=== PATIENT | female | born 2000 | race Caucasian/White ===

== ENCOUNTER 2023-11-17 10:30 | Inpatient (IN) ==
--- NOTE | 2023-11-17 13:47 | History & Physical Report ---
Date of Service November 17, 2023 Assessment & Plan (1) Gestational diabetes: (2) state, gestational carrier: (3) resulting from in vitro fertilization, antepartum: Plan Pt is a 23 yo at 37 3/7 WGA presenting to labor and delivery for labor. External FHT and external uterine monitors used; Category I tracing; moderate FHT variability. Blood type; O+, GBS negative, rubella equivocal Plan to monitor labor progress and may rupture membranes later if necessary. Proceed with labor and plan for vaginal delivery. History of Present Illness Chief Complaint: Labor check Primary Care Provider: SADE Silver Pt is a 24 y/o female currently at 37 3/7 WGA with an VALERIA of 12/05/2023 as determined by ultrasound who is here for labor. + contractions; + movement; - fluid loss; - bloody show. She states she feels overall well today, just that her contractions are quite painful. Had regular appointments with OB. Her was complicated by: Patient is Gestational Carrier IVF/ICSI * Echo- (08/02/23 @ [facility] [place] - wnl *Growth US Q4wks @28wks *Weekly NSTs @36wks *Weekly NATASHA's @36wks(ICSI only) GDM in prior Begin monthly Growth US's @24wks Hx PPROM with delivery @ 36+4 Rubella equivocal-offer MMR pp OB Labs: Blood Type O Positive 04/25/23 Antibody Screen NEGATIVE 04/25/23 Hemoglobin 10.8 g/dl (12.0-16.0) L 09/12/23 Hematocrit 35.6 % (37.0-47.0) L 09/12/23 Mean Corpuscular Volume 82.9 fL (80.0-100.0) 04/25/23 Platelet Count 315 K/uL (130-400) 04/25/23 Rubella IgG Antibody Equivocal (Immune) L 04/25/23 Rapid Plasma Reagin Nonreactive (Nonreactive) 04/25/23 Hepatitis B Surface Antigen. NON-REACTIVE (NON-REACTIVE) 04/25/23 Hepatitis C Antibody (EIA) NON-REACTIVE (NON-REACTIVE) 04/25/23 HIV (1&2) Ag and Ab Confirmation NON-REACTIVE (NON-REACTIVE) 04/25/23 Glucose 1 Hour 50 gm Load 176 mg/dl (70-130) H 06/20/23 OB Optional Labs: Chlamydia trachomatis RNA Not Detected (NotDetected) 04/25/23 Neisseria gonorrhoeae RNA Not Detected (NotDetected) 04/25/23 Labs Reviewed: cfdna-low risk--mln Allergies Allergy/AdvReac Type Severity Reaction Status Date / Time No Known Allergies Allergy Unknown Verified 11/15/23 10:01 Home Medications Medication Instructions Recorded Confirmed Type PNV no.[id number] PO 04/22/23 11/15/23 History [ Gummies] albuterol sulfate inhalation 04/22/23 11/15/23 History estradiol PO 04/22/23 11/15/23 History progesterone [Progesterone in Oil] IM 04/22/23 11/15/23 History acetone (urine) test (Ketone Urine #50 ea 07/15/23 11/15/23 Rx Test strips) blood sugar diagnostic (OneTouch #150 ea 07/15/23 11/15/23 Rx Verio test strips) blood-glucose meter (OneTouch #1 ea 07/15/23 11/15/23 Rx Verio Reflect Meter) lancets 33 gauge (OneTouch Delica #150 ea 07/15/23 11/15/23 Rx Plus Lancet) albuterol sulfate 90 mcg/actuation 2 inh inhalation Q4H PRN shortness 08/12/23 11/15/23 Rx breath activated powder inhaler of breath or wheezing #1 ea (ProAir RespiClick) budesonide-formoterol HFA 80 1 inh inhalation Q4H PRN wheezing 09/15/23 11/15/23 Rx mcg-4.5 mcg/actuation aerosol #30.6 grams inhaler (Symbicort) Patient History Medical History (Updated 08/12/23 @ 10:04 by Jennifer Gilliland PA-C) Asthma Varicella vaccination Surgical History (Updated 04/22/23 @ 14:29 by Beth Griffin) S/P ovarian cystectomy Right S/P wisdom tooth extraction Family History (Updated 04/22/23 @ 14:11 by Beth Griffin) Mother Endometriosis Father Diabetes Denies family history of Ovarian cancer Breast cancer Colorectal cancer Social History (Updated 04/22/23 @ 14:12 by Beth Zurita Smoking Status: Never smoker Second Hand Exposure: No; Do You Dip or Chew Tobacco: No; Tobacco Cessation Education Requested by Patient: No Hx Alcohol Use: No Hx Substance Use: No Preferred Language: Armenian Communication Ability: Effective Hospital Secretary Required: No Beliefs That Will Affect Care: None marital status: marital status details: Andres Jacobo [phone] Current Living Situation: Spouse Current Living Situation Comment: LG- , 2 Kids current occupational status: other current occupation: homemaker Other Information That Helps Us Care for You: No Feels Safe at Home: Yes Safety Concerns: Feels Safe At This Time Assistive Devices: None OB History Del. Date GA wks Lbr Lgth wt Sex Type del Anes Place Del Prov ? Comment 07/23/15 Aborted-Spontaneous 12/31/19 36 11 5-8 M Epidu ral Other [place] Y PPROM GDM diet controlled 10/13/21 38 9 8-4 M Epidu ral Other [facility] GDM diet controlled Review of Systems no fever, no chills and no sweats no dyspnea no difficulty breathing no chest pain and no palpitations no dysuria no headache(s) no changes in vision no breast pain Physical Exam Physical Exam: General: Alert, oriented. No acute distress. Cardiac: Regular rate and rhythm, no murmurs, gallops, or rubs. Respiratory: Clear to auscultation bilaterally a/p, no wheezes, rales, or rhonchi. No increased work of breathing. No respiratory distress. Abdomen: Gravid, Position: vertex Pelvic: Dilation 2 cm, Effacement 60%, Station -[address] Campbell. Lower extremities: No lower extremity edema or swelling. No deep calf pain. Bianca's negative bilaterally. Results & Data Vital Signs (Past 12 Hours) Vital Signs Temp Pulse Resp BP 11/17/23 13:00 16 11/17/23 13:00 36.9 C 16 11/17/23 12:59 91 H 120/69 11/17/23 11:07 98 H 122/76 11/17/23 11:05 36.9 C 98 H 18 122/76 Supervising Physician Co-Signing Physician Notes Resident Physician Supervision Note: I interviewed and examined the patient. Discussed with Dr. Red and agree with findings and plan as documented in the note. Any exceptions or clarifications are listed here: 23 yo at 37 1/7 wga presents in early labor. +FM; denies LOF, VB. PNI: IVF/ICSI as gest carrier, A1GDM. SVE /-2 > /-2 by nursing. GBS neg. Will admit for labor Documented By: Holly Campbell MD Resident Activity Tracking Resident Involvement: Resident Care Provided Care Provided: OB Delivery
[2023-11-17] MEDS ORDERED: LIDOCAINE 1% LOCAL 20 ML VIAL INFIL PRN (14:01)
[2023-11-17] MEDS ORDERED: OXYTOCIN 30 UNITS/NSS 30 UNITS/500 ML BAG IV PRN (14:01)
[2023-11-17] MEDS: LACTATED RINGER'S 1,000 ML IV PRN (14:15)
[2023-11-17 14:53] LABS: Hematocrit (blood only) 33.9 % (37.0-47.0); Hemoglobin 9.8 g/dl (12.0-16.0); Mean Corpuscular Hemoglobin 20.5 pg (25.0-34.0); Mean Corpuscular Hgb Conc 28.9 g/dL (32.0-36.0); Mean Corpuscular Volume 71.1 fL (80.0-100.0); Mean Platelet Volume 10.7 fL (9.4-12.4); Platelet Count 162 K/uL (130-400); RDW Coefficient of Variation 16.1 % (11.5-14.5); RDW Standard Deviation 40.9 fL (36.4-46.3); Red Blood Count 4.77 M/uL (4.20-5.40); White Blood Count 14.56 K/ul (4.8-10.8)
--- NOTE | 2023-11-17 18:05 | Labor Progress Brief Note ---
Date of Service November 17, 2023 Subjective ctx spaced a little with fluid bolus Assessment & Plan (1) Gestational diabetes: (2) state, gestational carrier: Plan 23 yo at 37 3/7 wga admitted in labor VSS Fetus cat 1 Labor - progress noted to 3-4cm. WIll continue to walk GBS epidural prn Admission and Anticipated Discharge Date Admission Date: November 17, 2023 Physical Exam Genitourinary: Manual OB Exam: + cervical dilation (3-4), + cervical effacement 50% and + station -2 OB Exam Monitor Tracing: + external FHT monitor used, + external uterine monitor used (q4-5) and + category I (130/mod/+accel/-decel) Results & Data Vital Signs (Past 12 Hours) Vital Signs Temp Pulse Resp BP 11/17/23 15:20 16 11/17/23 15:20 98.1 F 16 11/17/23 15:10 81 123/71 11/17/23 13:00 16 11/17/23 13:00 98.4 F 16 11/17/23 12:59 91 H 120/69 11/17/23 11:07 98 H 122/76 11/17/23 11:05 98.4 F 98 H 18 122/76 Coding Level of Care Code None Diagnoses Gestational diabetes O24.419 state, gestational carrier Z33.3
[2023-11-17] MEDS ORDERED: diphenhydrAMINE 50 MG/ML VIAL IV PRN (19:19)
[2023-11-17] MEDS ORDERED: NALOXONE HCL 1 MG in SODIUM CHLORIDE 0.9% 1,000 ML IV PRN (19:19)
[2023-11-17] MEDS ORDERED: fentANYL 2 MCG/ML BUPIVacaine 0.125%-NSS 100ML BAG EPI PRN (19:19)
[2023-11-17] MEDS ORDERED: BUPIVACAINE 0.25% PF 30 ML VIAL EPI PRN (19:19)
[2023-11-17] MEDS ORDERED: NALBUPHINE HCL 5 MG in SYRINGE 0 ML IV PRN (19:19)
[2023-11-17] MEDS ORDERED: LIDOCAINE 2% MPF LOCAL 5 ML VIAL EPI PRN (19:19)
[2023-11-17] MEDS ORDERED: fentaNYL citrate PF 100 MCG/2 ML VIAL EPI PRN (19:19)
[2023-11-17] MEDS ORDERED: NALOXONE HCL 0.4 MG/1 ML VIAL/CARP IV PRN (19:19)
[2023-11-17] MEDS ORDERED: ROPIVACAINE 0.5% PF 5 MG/ML 20 ML VIAL EPI PRN (19:19)
[2023-11-17] MEDS ORDERED: SODIUM CHLORIDE 0.9% PF INJ 10 ML VIAL EPI PRN (19:19)
--- NOTE | 2023-11-17 19:19 | Anesthesiology Consultation ---
Date of Service November 17, 2023 Assessment & Plan (1) Encounter for pre-operative examination: Chart Review Chart Review: Patient NOT seen in Pre Admission Testing and Acceptable Risk for Labor Epidural Consults Requested none History Height/Weight Height: 5 ft 2 in Weight: 74.389 kg Allergies Allergy/AdvReac Type Severity Reaction Status Date / Time No Known Allergies Allergy Unknown Verified 11/15/23 10:01 Medications Home Medications Medication Instructions Recorded Confirmed Last Taken PNV no.[id number] PO 04/22/23 11/15/23 Unknown [ Gummies] albuterol sulfate inhalation 04/22/23 11/15/23 Unknown estradiol PO 04/22/23 11/15/23 Unknown progesterone [Progesterone in Oil] IM 04/22/23 11/15/23 Unknown acetone (urine) test (Ketone Urine #50 ea 07/15/23 11/15/23 Unknown Test strips) blood sugar diagnostic (OneTouch #150 ea 07/15/23 11/15/23 Unknown Verio test strips) blood-glucose meter (OneTouch #1 ea 07/15/23 11/15/23 Unknown Verio Reflect Meter) lancets 33 gauge (OneTouch Delica #150 ea 07/15/23 11/15/23 Unknown Plus Lancet) albuterol sulfate 90 mcg/actuation 2 inh inhalation Q4H PRN shortness 08/12/23 11/15/23 Unknown breath activated powder inhaler of breath or wheezing #1 ea (ProAir RespiClick) budesonide-formoterol HFA 80 1 inh inhalation Q4H PRN wheezing 09/15/23 11/15/23 Unknown mcg-4.5 mcg/actuation aerosol #30.6 grams inhaler (Symbicort) Active Medications Generic Name Dose Route Start Last Admin Trade Name Freq PRN Reason Stop Dose Admin Lactated Ringer's 1,000 mls @ 125 mls/hr 11/17/23 14:01 11/17/23 15:15 Lr IV 11/19/23 14:00 125 mls/hr .Q8H PRN Administration L&D Protocol Protocol Past Medical History Medical History Asthma Varicella vaccination Past Family History Family History Mother Endometriosis Father Diabetes Denies family history of Ovarian cancer Breast cancer Colorectal cancer Past Surgical History Surgical History S/P ovarian cystectomy Right S/P wisdom tooth extraction Social History Smoking Status: Never smoker Do You Dip or Chew Tobacco: No Hx Alcohol Use: No Hx Substance Use: No Physical Exam Vital Signs Last Vital Signs Temp 98.2 F 11/17/23 19:08 Pulse 95 H 11/17/23 19:10 Resp 16 11/17/23 19:08 BP 119/87 11/17/23 19:10 Testing Laboratory Results 11/17/23 14:27 11/17/23 11/17/23 16:37 15:33 POC Glucose 127 H 68 L*
--- NOTE | 2023-11-17 20:14 | Labor Progress Brief Note ---
Date of Service November 17, 2023 Subjective ctx still painful Assessment & Plan (1) Gestational diabetes: (2) state, gestational carrier: Plan 23 yo at 37 3/7 wga admitted in labor VSS Fetus cat 1 Labor - ctx spaced a little but still painful, progress noted. GBS epidural desired Admission and Anticipated Discharge Date Admission Date: November 17, 2023 Physical Exam Genitourinary: Manual OB Exam: + cervical dilation 4 cm, + cervical effacement 60% and + station -2 OB Exam Monitor Tracing: + external FHT monitor used, + external uterine monitor used and + category I (130/mod/+accel/-decel) Results & Data Vital Signs (Past 12 Hours) Vital Signs Temp Pulse Resp BP Pulse Ox 11/17/23 20:06 102 H 100 11/17/23 20:01 90 100 11/17/23 19:56 98 H 100 11/17/23 19:10 95 H 119/87 11/17/23 19:08 16 11/17/23 19:08 98.2 F 16 11/17/23 15:20 16 11/17/23 15:20 98.1 F 16 11/17/23 15:10 81 123/71 11/17/23 13:00 16 11/17/23 13:00 98.4 F 16 11/17/23 12:59 91 H 120/69 11/17/23 11:07 98 H 122/76 11/17/23 11:05 98.4 F 98 H 18 122/76 Coding Level of Care Code None Diagnoses Gestational diabetes O24.419 state, gestational carrier Z33.3
[2023-11-17] MEDS: fentANYL 2 MCG/ML BUPIVacaine 0.125%-NSS 100ML BAG ONE (20:15)
[2023-11-17] MEDS: LIDOCAINE 2%/EPINEPHRINE 1:200,000 20 ML PF EPI STA (20:18)
[2023-11-17] MEDS: BUPIVACAINE 0.25% PF 30 ML VIAL EPI STA (20:19)
[2023-11-17] MEDS: SODIUM CHLORIDE 0.9% PF INJ 10 ML VIAL ONE (20:28)
[2023-11-17] MEDS: fentaNYL citrate PF 100 MCG/2 ML VIAL ONE (20:28)
[2023-11-17] MEDS: fentaNYL citrate PF 100 MCG/2 ML VIAL EPI STA (20:28)
[2023-11-17] MEDS: SODIUM CHLORIDE 0.9% PF INJ 10 ML VIAL EPI STA (20:28)
[2023-11-17] MEDS: BUPIVACAINE 0.25% PF 30 ML VIAL ONE (20:32)
[2023-11-17] MEDS: LIDOCAINE 2%/EPINEPHRINE 1:200,000 20 ML PF ONE (20:33)
[2023-11-17] MEDS: CALCIUM CARBONATE 500 MG CHEWABLE TAB PO PRN (20:39)
[2023-11-17] MEDS: ePHEDrine sulfate 50 MG/ML AMP IV PRN (20:51)
--- NOTE | 2023-11-17 22:04 | Labor Progress Brief Note ---
Date of Service November 17, 2023 Subjective comfortable w/ epidural Assessment & Plan (1) Gestational diabetes: (2) state, gestational carrier: Plan 23 yo at 37 3/7 wga admitted in labor VSS Fetus cat 1 Labor - now s/p arom, continue to monitor progress GBS epidural in place Admission and Anticipated Discharge Date Admission Date: November 17, 2023 Physical Exam Genitourinary: Manual OB Exam: + cervical dilation 4 cm (stretches to 5 w/ ctx), + cervical effacement 60%, + station -2 and + amniotic fluid (arom clear) OB Exam Monitor Tracing: + external FHT monitor used, + external uterine monitor used and + category I (130/mod/+accel/-decel) Results & Data Vital Signs (Past 12 Hours) Vital Signs Temp Pulse Resp BP Pulse Ox 11/17/23 22:01 94 H 100 11/17/23 21:56 91 H 119/64 100 11/17/23 21:51 90 109/67 99 11/17/23 21:46 99 H 100 11/17/23 21:45 96 H 110/67 11/17/23 21:41 110 H 100 11/17/23 21:40 105 H 114/70 11/17/23 21:36 101 H 98 11/17/23 21:35 98 H 108/63 11/17/23 21:31 92 H 100 11/17/23 21:30 97 H 16 120/68 11/17/23 21:26 95 H 100 11/17/23 21:25 95 H 105/65 11/17/23 21:21 102 H 100 11/17/23 21:20 100 H 106/66 11/17/23 21:18 88 106/63 11/17/23 21:16 89 100 11/17/23 21:15 103 H 102/62 11/17/23 21:13 96 H 103/57 L 11/17/23 21:11 107 H 99 11/17/23 21:10 100 H 105/59 L 11/17/23 21:08 93 H 110/57 L 11/17/23 21:07 105 H 81/45 L 11/17/23 21:06 100 H 100 11/17/23 21:05 97 H 81/50 L 11/17/23 21:01 96 H 108/62 100 11/17/23 21:00 16 0613/24 21:00 16 11/17/23 20:58 90 100/59 L 11/17/23 20:56 95 H 93/52 L 100 11/17/23 20:54 82 96/56 L 11/17/23 20:53 79 98/56 L 11/17/23 20:52 76 95/53 L 11/17/23 20:51 65 75/39 L 100 11/17/23 20:50 74 75/39 L 11/17/23 20:46 107 H 96 11/17/23 20:45 96 H 16 115/70 11/17/23 20:41 98 H 114/68 100 11/17/23 20:36 96 H 100 11/17/23 20:35 78 114/62 11/17/23 20:31 99 H 100 11/17/23 20:30 102 H 16 119/60 11/17/23 20:26 106 H 100 11/17/23 20:25 16 11/17/23 20:25 16 11/17/23 20:24 100 H 121/58 L 11/17/23 20:22 99 H 125/60 11/17/23 20:21 103 H 100 11/17/23 20:20 100 H 130/58 L 11/17/23 20:18 110 H 138/61 11/17/23 20:16 106 H 100 11/17/23 20:11 110 H 100 11/17/23 20:06 102 H 100 11/17/23 20:01 90 100 11/17/23 19:56 98 H 100 11/17/23 19:10 95 H 119/87 11/17/23 19:08 16 11/17/23 19:08 98.2 F 11/17/23 15:20 16 11/17/23 15:20 98.1 F 16 11/17/23 15:10 81 123/71 11/17/23 13:00 16 11/17/23 13:00 98.4 F 16 11/17/23 12:59 91 H 120/69 11/17/23 11:07 98 H 122/76 11/17/23 11:05 98.4 F 98 H 18 122/76 Coding Level of Care Code None Diagnoses Gestational diabetes O24.419 state, gestational carrier Z33.3
[2023-11-17] MEDS ORDERED: NURSING L&D Epidural Breakthrough Pain Update ONE (23:21)
[2023-11-17] MEDS: OXYTOCIN 30 UNITS/NSS 30 UNITS/500 ML BAG IV PRN (23:24)
--- NOTE | 2023-11-18 00:52 | Delivery Summary ---
Vaginal Delivery Summary Date of Service November 18, 2023 Vaginal Delivery Summary [facility] PREOPERATIVE DIAGNOSIS: 1. Single intrauterine at 37 4/7 wga 2. Labor 3. IVF /gestational carrier POSTOPERATIVE DIAGNOSIS: 1. Single intrauterine at 37 4/7 wga 2. Labor 3. IVF /gestational carrier 4. Delivered PROCEDURE: 1. Normal spontaneous vaginal delivery. SURGEON: Holly Campbell MD ANESTHESIA: Epidural. QUANTITATIVE BLOOD LOSS: 461 mL FLUIDS: Continuous LR. URINE OUTPUT: None. COMPLICATIONS: None. CONDITION: Stable. INDICATIONS: 23 yo at 37 4/7 wga presented with complaints of contractions. She was found to be in early labor and admitted, continued to progress spontaneously. She received an epidural for pain control and underwent AROM. Pitocin was started and she quickly progressed to complete and desired to push. FINDINGS: A viable female infant, weight pending with Apgars of 8 and 9 at 1 and 5 minutes respectively. SPECIMEN: Cord blood OPERATIVE REPORT: The patient progressed to 10 cm, 100% effaced and +2 station, pushed over intact perineum with anesthesia to deliver a viable female , weight and Apgars as above. Head of delivered in MICHAEL position. No nuchal cord was present. Body and shoulders were delivered without difficulty. was delivered to maternal abdomen and nursing staff. Delayed cord clamping was performed for 60 seconds. Cord was clamped and cut. Cord blood was obtained. Placenta delivered spontaneously intact with 3-vessel cord. IV oxytocin and fundal massage were given for excellent hemostasis. Vagina, cervix, perineum, and placenta were inspected. A left periclitoral abrasion was noted and not needed to be repaired. Sponge and needle counts correct x2. No sponges were left behind. Mother and stable in immediate period. [facility] [place] Vaginal Delivery Charge Vaginal Delivery Codes: 35653 global code for the antepartum, delivery, and post- Delivery Type Details: [facility]
--- NOTE | 2023-11-18 02:09 | Anesthesia Procedure Note ---
Date of Service November 18, 2023 Anesthesia Post Epidural Note Vital Signs Vital Signs: Temp Pulse Resp BP Pulse Ox 98.2 F 80 16 107/65 99 11/18/23 00:50 11/18/23 02:06 11/18/23 01:50 11/18/23 02:06 11/18/23 01:06 Pain Intensity Abdomen: Pain Intensity: 5 Notes Mental Status: alert / awake / arousable and participated in evaluation Nausea / Vomiting: adequately controlled Pain: adequately controlled Airway Patency, RR, SpO2: stable & adequate BP & HR: stable & adequate Hydration State: stable & adequate Neuraxial Anesthesia: was administered and sensory block is resolving Anesthetic Complications: no major complications apparent and Pt Satisfied with anesthetic care Epidural: Removed without complications and With tip intact
[2023-11-18] MEDS ORDERED: OXYTOCIN 30 UNITS/NSS 30 UNITS/500 ML BAG IV PRN (02:38)
[2023-11-18] MEDS ORDERED: HYDROCORTISONE ACETATE 25 MG SUPP PR PRN (02:38)
[2023-11-18] MEDS: IBUPROFEN 600 MG TAB PO PRN (03:28)
[2023-11-18] MEDS: ACETAMINOPHEN 325 MG TAB PO PRN (04:19)
[2023-11-18] MEDS: DIPHTHER/TETAN/PERTUS Vaccine (Tdap, Adol/Adult) 0.5mL IM ONE (07:21)
[2023-11-18] MEDS: PRENATAL VITAMIN 1 TAB PO SCH (07:44)
[2023-11-18] MEDS: FERROUS SULFATE 325 MG TAB PO SCH (07:44)
[2023-11-18] MEDS: DOCUSATE SODIUM 100 MG CAP PO SCH (07:44)
[2023-11-18] MEDS: BENZOCAINE 20% SPRY 85 APPLN/85 GM CAN EXT PRN (16:37)
[2023-11-18] MEDS: ePHEDrine sulfate 50 MG/ML AMP ONE (20:46)
--- NOTE | 2023-11-19 05:27 | Obstetrical Progress Note ---
Date of Service November 19, 2023 Assessment & Plan (1) care following vaginal delivery: Plan Feels well today. Eating well, voiding well, ambulating well. Pain well controlled with prn tylenol and ibuprofen. Routine care; OOB, ambulation, continue regular diet. Anticipate discharge 24-48 hours after , most likely today. After discharge will have 6 week follow-up with Dr. Campbell. Subjective Pt is a 23 y/o female who is PPD#1 following at 37 weeks. Pt states she is feeling well today, no questions or complaints. She is ambulating, voiding, and tolerating intake without issue. Bleeding is mild and cramping has been mild as well. She is bottle feeding and pumping. She states she overall feels okay and would like to go home today if possible since she has other kids at home. Constitutional: no fever, no chills or no sweats Respiratory: no dyspnea Cardiovascular: no chest pain or no palpitations Breast: no breast pain Genitourinary (female): no dysuria Neurologic: no headache(s) no changes in vision, no headaches Physical Exam General: Alert, oriented. No acute distress. Cardiac: Regular rate and rhythm, no murmurs, rubs, or gallops. Respiratory: Clear to auscultation bilaterally, no wheezes/rales/rhonchi. No increased work of breathing. Symmetrical chest rise. No respiratory distress. Abdomen: Soft, nontender, nondistended. Bowel sounds present. Uterus: Uterine fundus firm, palpable below the umbilicus. Lower extremities: No lower extremity edema or swelling. No deep calf pain. Results & Data Vital Signs (Past 12 Hours) Vital Signs Temp Pulse Resp BP Pulse Ox O2 Del Method 11/18/23 22:43 36.6 C 71 18 109/73 97 Room Air 11/18/23 19:23 36.6 C 67 16 111/73 100 Room Air Resident Activity Tracking Resident Involvement: Resident Care Provided Care Provided: OB Delivery
[2023-11-19] MEDS ORDERED: MEASLES, MUMPS & RUBELLA VIRUS VACCINE (MMR) 0.5ML VIAL ONE (10:43)
[2023-11-19] MEDS: MEASLES, MUMPS & RUBELLA VIRUS VACCINE (MMR) 0.5ML VIAL SQ ONE (10:50)
[2023-11-19] MEDS ORDERED: bisacodyL 5 MG TABEC PO SCH (20:00)
[2023-11-20] MEDS ORDERED: bisacodyL 10 MG SUPP PR PRN
== END 2023-11-19 12:10 | disposition home or self-care (01) | DRG 807 ==
LOC: OPB 10:30 → 4S1 10:58 → 4E2 11-18 03:46

== ENCOUNTER 2025-01-13 09:33 | Inpatient (IN) ==
[2025-01-13] MEDS: LACTATED RINGER'S 1,000 ML IV PRN (09:40)
--- NOTE | 2025-01-13 09:50 | Anesthesiology Consultation ---
Date of Service January 13, 2025 Assessment & Plan Chart Review Chart Review: Acceptable Risk for Surgery, Patient NOT seen in Pre Admission Testing and Acceptable Risk for Labor Epidural Consults Requested none ASA ASA2 Proposed Anesthesia Anesthesia Type: Labor Epidural and CSE History Allergies Allergy/AdvReac Type Severity Reaction Status Date / Time No Known Allergies Allergy Unknown Verified 01/10/25 09:12 Medications Home Medications Medication Instructions Recorded Confirmed Last Taken acetone (urine) test (Ketone Urine #50 ea 07/04/24 01/10/25 Unknown Test strips) blood sugar diagnostic (OneTouch #150 ea 07/04/24 01/10/25 Unknown Verio test strips) lancets 33 gauge (OneTouch Delica #150 ea 07/04/24 01/10/25 Unknown Plus Lancet) albuterol sulfate 90 mcg/actuation 2 puff inhalation Q6H PRN 10/04/24 01/12/25 Unknown aerosol inhaler shortness of breath or wheezing #18 grams vits no.124-ferrous fum 1 tab PO DAILY 01/12/25 01/12/25 01/11/25 08:00 27 mg iron-folic acid 800 mcg tablet ( Vitamin) Past Medical History Medical History 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) Asthma, moderate persistent (03/17/12) Ovarian cyst Miscarriage Asthma Varicella vaccination Exercise / Class Metabolic Activity II 4-5 Yardwork/Stairs/Walk up hill Past Family History Family History Mother Endometriosis Father Diabetes Denies family history of Ovarian cancer Breast cancer Colorectal cancer Past Surgical History Surgical History S/P ovarian cystectomy Right S/P wisdom tooth extraction Past Anesthesia History No Hx of Anesthesia Complications and No Family Hx of Anesthesia Complications History of PONV No Hx of PONV and No Hx of Motion Sickness Social History Smoking Status: Never smoker Do You Dip or Chew Tobacco: No Hx Alcohol Use: No Hx Substance Use: No substance use type: does not use Physical Exam Vital Signs Last Vital Signs Pulse 83 01/13/25 09:47 Pulse Ox 100 01/13/25 09:47
[2025-01-13 10:08] LABS: Hematocrit (blood only) 34.1 % (37.0-47.0); Hemoglobin 10.4 g/dl (12.0-16.0); Mean Corpuscular Hemoglobin 21.9 pg (25.0-34.0); Mean Corpuscular Volume 71.9 fL (80.0-100.0); Platelet Count 230 K/uL (130-400); RDW Standard Deviation 40.9 fL (36.4-46.3); Red Blood Count 4.74 M/uL (4.20-5.40); White Blood Count 10.13 K/ul (4.8-10.8)
[2025-01-13] MEDS: BUPIVACAINE 0.25% PF 30 ML VIAL ONE (10:21)
[2025-01-13] MEDS ORDERED: PROMETHAZINE 6.25 MG/50.25 ML BAG IV PRN (10:24)
[2025-01-13] MEDS ORDERED: NALOXONE HCL 0.08 MG in SYRINGE 1.8 ML IV PRN (10:24)
[2025-01-13] MEDS ORDERED: NALOXONE HCL 0.4 MG/1 ML VIAL/CARP IV PRN (10:24)
[2025-01-13] MEDS ORDERED: NALBUPHINE HCL INJ 10 MG/ML AMP IV PRN (10:24)
[2025-01-13] MEDS ORDERED: ONDANSETRON INJ 2 MG/ML 2 ML VIAL IV PRN (10:24)
[2025-01-13] MEDS ORDERED: LACTATED RINGER'S 500 ML IV PRN (10:24)
[2025-01-13] MEDS ORDERED: NALOXONE HCL 1 MG in SODIUM CHLORIDE 0.9% 1,000 ML IV PRN (10:24)
[2025-01-13] MEDS ORDERED: diphenhydrAMINE 50 MG/ML VIAL IV PRN (10:24)
[2025-01-13] MEDS ORDERED: DC INTRASPINAL MORPHINE SCH (10:30)
[2025-01-13] MEDS ORDERED: SODIUM CHLORIDE 0.9% 1,000 ML IV SCH (10:30)
[2025-01-13] MEDS ORDERED: NO NARCOTICS OR SEDATIVES SCH (10:30)
[2025-01-13] MEDS: LIDOCAINE 2%/EPINEPHRINE 1:200,000 20 ML PF ONE (10:39)
[2025-01-13] MEDS: fentANYL 2 MCG/ML BUPIVacaine 0.125%-NSS 100ML BAG ONE (10:39)
[2025-01-13] MEDS: SODIUM CHLORIDE 0.9% PF INJ 10 ML VIAL ONE (10:39)
--- NOTE | 2025-01-13 10:49 | History & Physical Report ---
Date of Service January 13, 2025 Assessment & Plan (1) Normal labor: (2) Gestational diabetes: Plan pt has been admitted. will see how arom helps labor pattern. expect . fhts categ 1. rh pos, gbs neg. bsg now and q 2hr. History of Present Illness Chief Complaint: regular ctx Primary Care Provider: SADE Silver 24yo (gest carrier x 1) at 39+wks ega presents to LD with regular ctx and blood show. Called noting more painful and regular ctx q2-3min and bloody show. On arrival was 6cm per nurse and requesting regional anesthesia. Now comfortable with spinal and wanting arom. PNC c/b 1. GDM diet controlled--last efw 36% 2. asthma 3. prior PPROM at 36wks. PNL rhpos, ri, gbs neg OBH: x 3 (gest carrier in 2023 ) GYNH: nl paps no stds Allergies Allergy/AdvReac Type Severity Reaction Status Date / Time No Known Allergies Allergy Unknown Verified 01/10/25 09:12 Home Medications Medication Instructions Recorded Confirmed Type acetone (urine) test (Ketone Urine #50 ea 07/04/24 01/10/25 Rx Test strips) blood sugar diagnostic (OneTouch #150 ea 07/04/24 01/10/25 Rx Verio test strips) lancets 33 gauge (OneTouch Delica #150 ea 07/04/24 01/10/25 Rx Plus Lancet) albuterol sulfate 90 mcg/actuation 2 puff inhalation Q6H PRN 10/04/24 01/12/25 Rx aerosol inhaler shortness of breath or wheezing #18 grams vits no.124-ferrous fum 1 tab PO DAILY 01/12/25 01/12/25 History 27 mg iron-folic acid 800 mcg tablet ( Vitamin) Patient History Medical History 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) Asthma, moderate persistent (03/17/12) Ovarian cyst Miscarriage Asthma Varicella vaccination Surgical History S/P ovarian cystectomy Right S/P wisdom tooth extraction Family History Mother Endometriosis Father Diabetes Denies family history of Ovarian cancer Breast cancer Colorectal cancer Social History (Updated 01/12/25 @ 14:59 by Annalisa Roach RN) Smoking Status: Never smoker Second Hand Exposure: No; Do You Dip or Chew Tobacco: No; Hx Alcohol Use: No Hx Substance Use: No Preferred Language: Cambodian Communication Ability: Effective Hearing Ability: Normal Health Safety Manager Required: No Beliefs That Will Affect Care: None marital status: marital status details: Andres Jacobo (29) [phone] Current Living Situation: Spouse and Family Current Living Situation Comment: lives with spouse, 2 children, dog current occupational status: other current occupation: homemaker Other Information That Helps Us Care for You: No Feels Safe at Home: Yes Safety Concerns: Feels Safe At This Time Diet: regular Gender Identity: Female Assistive Devices: Glasses Review of Systems as per Subjective / HPI Physical Exam Constitutional: WD/WN, vitals as above Respiratory: normal respiratory effort, lungs clear to auscultation Cardiovascular: Rate/Rhythm: regular rate and regular rhythm Gastrointestinal (Abdomen): soft gravid nt Musculoskeletal: no edema nontender calves Neurologic: grossly normal Psychiatric: A+Ox3, euthymic affect Genitourinary: Manual OB Exam: + cervical dilation 8 cm, + cervical effacement (75%), + station 0 and + amniotic fluid (arom) clear OB Exam Monitor Tracing: + external FHT monitor used, + external uterine monitor used (q3), + category I and + normal FHT variability Results & Data Vital Signs (Past 12 Hours) Vital Signs Temp Pulse Resp BP Pulse Ox 01/13/25 10:44 78 92 01/13/25 10:42 60 100 01/13/25 10:38 59 L 106/55 L 01/13/25 10:37 99 01/13/25 10:37 66 01/13/25 10:37 75 111/61 01/13/25 10:34 91 01/13/25 10:34 63 01/13/25 10:34 60 106/58 L 01/13/25 10:32 98 01/13/25 10:32 66 01/13/25 10:32 71 116/65 01/13/25 10:30 59 L 102/58 L 01/13/25 10:28 61 105/61 01/13/25 10:27 61 100 01/13/25 10:26 60 100/57 L 01/13/25 10:24 64 104/57 L 01/13/25 10:22 100 01/13/25 10:22 63 01/13/25 10:22 59 L 109/57 L 01/13/25 10:20 78 108/57 L 01/13/25 10:18 72 121/57 L 01/13/25 10:17 77 98 01/13/25 10:12 92 H 99 01/13/25 10:07 81 99 01/13/25 10:02 82 99 01/13/25 09:57 85 98 01/13/25 09:52 76 100 01/13/25 09:47 83 100 01/13/25 09:46 102 H 90 01/13/25 09:42 76 100 01/13/25 09:41 98.2 F 20 Coding Level of Care Code None Diagnoses Normal labor O80; Z37.9 Gestational diabetes O24.419
[2025-01-13] MEDS: OXYTOCIN 30 UNITS/NSS 30 UNITS/500 ML BAG IV PRN ×2 (11:41→17:10)
[2025-01-13] MEDS: LIDOCAINE 1% LOCAL 20 ML VIAL INFIL PRN (11:50)
--- NOTE | 2025-01-13 11:52 | Delivery Summary ---
Vaginal Delivery Summary Date of Service January 13, 2025 Vaginal Delivery Summary The patient dilated to complete and pushed to deliver a viable female Apgars 8 and 9 via over intact perineum. Shoulders and body delivered with ease. was vigorous and crying at . Mouth and nose bulb suctioned. Cord clamped at 40 seconds of life and to maternal abdomen where the cord was then doubly clamped and cut. Placenta delivered spontaneously and intact, three-vessel cord. Hemostasis achieved with dilute pitocin and uterine massage and drainage of the bladder for approximately 200 cc under sterile conditions. Cervix and sulci intact. Periurethral laceration was bleeding and reapproximated with 4-0 vicryl for excellent hemostasis after 1% local lidocaine injection for anesthesia. Of note urinary catheter used after repair and no issues. QBL 263 cc. Mother and baby stable in recovery. [facility] Vaginal Delivery Charge Delivery Type Details:
[2025-01-13] MEDS ORDERED: ALBUTEROL HFA 8 GM INHALER INH PRN (12:04)
[2025-01-13] MEDS ORDERED: BENZOCAINE 20% SPRY 85 APPLN/85 GM CAN EXT PRN (13:13)
[2025-01-13] MEDS ORDERED: HYDROCORTISONE ACETATE 25 MG SUPP PR PRN (13:13)
[2025-01-13] MEDS: IBUPROFEN 600 MG TAB PO ONE (13:23)
[2025-01-13] MEDS ORDERED: SODIUM CHLORIDE 0.9% 100 ML IV PRN (17:14)
[2025-01-13] MEDS: LACTATED RINGER'S 1,000 ML IV ONE (17:15)
[2025-01-13] MEDS: BUTORPHANOL TARTRATE 1 MG/ML VIAL ONE (17:29)
[2025-01-13] MEDS: METHYLERGONOVINE MALEATE 0.2 MG/ML AMP IM STA (17:31)
[2025-01-13] MEDS: TRANEXAMIC ACID / 0.7% NACL 1,000 MG/100 ML BAG IV STA (17:31)
[2025-01-13 17:36] LABS: Hematocrit (blood only) 27.9 % (37.0-47.0); Hemoglobin 8.3 g/dl (12.0-16.0)
--- NOTE | 2025-01-13 17:38 | Anesthesiology Progress Note ---
Date of Service January 13, 2025 Anesthesia Post Procedure Vital Signs Vital Signs: Temp Pulse Pulse Resp BP BP Pulse Ox 01/13/25 15:20 36.8 C 67 16 113/76 98 01/13/25 14:14 36.9 C 18 01/13/25 14:09 70 113/67 01/13/25 13:54 71 107/67 01/13/25 13:39 66 110/63 01/13/25 13:24 58 L 115/70 01/13/25 13:09 69 117/70 01/13/25 12:54 63 111/64 01/13/25 12:49 67 90 01/13/25 12:47 71 99 01/13/25 12:42 69 95 01/13/25 12:39 68 108/55 L 01/13/25 12:37 97 01/13/25 12:37 71 01/13/25 12:37 69 93 01/13/25 12:32 73 97 01/13/25 12:27 77 95 01/13/25 12:24 90 125/62 01/13/25 12:22 66 98 01/13/25 12:17 68 99 01/13/25 12:12 69 98 01/13/25 12:09 78 119/58 L 01/13/25 12:07 92 H 100 01/13/25 12:02 79 99 01/13/25 11:57 79 98 01/13/25 11:54 81 125/58 L 01/13/25 11:52 86 98 01/13/25 11:47 94 H 99 01/13/25 11:42 87 99 01/13/25 11:37 87 100 01/13/25 11:34 86 91 01/13/25 11:32 100 H 100 01/13/25 11:27 76 100 01/13/25 11:24 78 118/70 01/13/25 11:22 76 100 01/13/25 11:17 84 100 01/13/25 11:12 70 100 01/13/25 11:09 69 18 114/63 01/13/25 11:07 67 100 01/13/25 11:02 70 100 01/13/25 10:57 69 100 01/13/25 10:54 67 101/60 01/13/25 10:52 75 100 01/13/25 10:47 75 100 01/13/25 10:44 78 92 01/13/25 10:42 60 100 01/13/25 10:38 59 L 106/55 L 01/13/25 10:37 99 01/13/25 10:37 66 01/13/25 10:37 75 111/61 01/13/25 10:34 91 01/13/25 10:34 63 01/13/25 10:34 60 106/58 L 01/13/25 10:32 98 01/13/25 10:32 66 01/13/25 10:32 71 116/65 01/13/25 10:30 59 L 102/58 L 01/13/25 10:28 61 105/61 01/13/25 10:27 61 100 01/13/25 10:26 60 100/57 L 01/13/25 10:24 64 104/57 L 01/13/25 10:22 100 01/13/25 10:22 63 01/13/25 10:22 59 L 109/57 L 01/13/25 10:20 78 108/57 L 01/13/25 10:18 72 121/57 L 01/13/25 10:17 77 98 01/13/25 10:12 92 H 99 01/13/25 10:07 81 99 01/13/25 10:02 82 99 01/13/25 09:57 36.8 C 85 24 98 01/13/25 09:52 76 100 01/13/25 09:47 83 100 01/13/25 09:46 102 H 90 01/13/25 09:42 76 100 01/13/25 09:41 36.8 C 20 O2 Del Method 01/13/25 15:20 Room Air 01/13/25 14:14 01/13/25 14:09 01/13/25 13:54 01/13/25 13:39 01/13/25 13:24 01/13/25 13:09 01/13/25 12:54 01/13/25 12:49 01/13/25 12:47 01/13/25 12:42 01/13/25 12:39 01/13/25 12:37 01/13/25 12:37 01/13/25 12:37 01/13/25 12:32 01/13/25 12:27 01/13/25 12:24 01/13/25 12:22 01/13/25 12:17 01/13/25 12:12 01/13/25 12:09 01/13/25 12:07 01/13/25 12:02 01/13/25 11:57 01/13/25 11:54 01/13/25 11:52 01/13/25 11:47 01/13/25 11:42 01/13/25 11:37 01/13/25 11:34 01/13/25 11:32 01/13/25 11:27 01/13/25 11:24 01/13/25 11:22 01/13/25 11:17 01/13/25 11:12 01/13/25 11:09 01/13/25 11:07 01/13/25 11:02 01/13/25 10:57 01/13/25 10:54 01/13/25 10:52 01/13/25 10:47 01/13/25 10:44 01/13/25 10:42 01/13/25 10:38 01/13/25 10:37 01/13/25 10:37 01/13/25 10:37 01/13/25 10:34 01/13/25 10:34 01/13/25 10:34 01/13/25 10:32 01/13/25 10:32 01/13/25 10:32 01/13/25 10:30 01/13/25 10:28 01/13/25 10:27 01/13/25 10:26 01/13/25 10:24 01/13/25 10:22 01/13/25 10:22 01/13/25 10:22 01/13/25 10:20 01/13/25 10:18 01/13/25 10:17 01/13/25 10:12 01/13/25 10:07 01/13/25 10:02 01/13/25 09:57 01/13/25 09:52 01/13/25 09:47 01/13/25 09:46 01/13/25 09:42 01/13/25 09:41 Pain Intensity Abdomen: Pain Intensity: 2 Transfer of Care Handoff Completed per policy Notes Mental Status: alert / awake / arousable Patient Amnestic to Procedure: Yes Nausea / Vomiting: adequately controlled Pain: adequately controlled Airway Patency, RR, SpO2: stable & adequate BP & HR: stable & adequate Hydration State: stable & adequate Neuraxial Anesthesia: was administered, sensory block is resolving and sensory block resolved Anesthetic Complications: no major complications apparent
--- NOTE | 2025-01-13 17:48 | Obstetrical Progress Note ---
Date of Service January 13, 2025 Assessment & Plan (1) hemorrhage: Plan presumed uterine atony, now has responded to measures and txa to be given. will move to LD for closer observation. during course of exam given stadol. will need to watch her urine output and may need to place a montgomery. hemoglobin pending. T&C but units held. hgb returned 8.3. Admission and Anticipated Discharge Date Admission Date: January 13, 2025 Subjective ctsp due to heavy bleeding. pt apparently recovered from delivery with qbl about 450cc and was moved to . she was up to urinate and passed a few clots and then when up again, had heavier bleeding, flowing down her leg and large clots and that is when i was called. upon my arrival was getting iv dilute pit and after hearing her bp i had given verbal order for methergine. bleeding was lessened and total qbl about 1100cc by my arrival. pt shaking in bed, scared and anxious. spouse at bedside. baby in room, had just been nursing. Review of Systems Constitutional: as per Subjective / HPI Physical Exam Constitutional: WD/WN, vitals as above Neurologic: grossly normal Psychiatric: A+Ox3, euthymic affect Genitourinary: normal external appearance bedside exam ff 1 down, appropriately tender. cx contracted and PAYTON. no bleeding noted. bladder scan 198cc. Results & Data Vital Signs (Past 12 Hours) Vital Signs Temp Pulse Pulse Resp BP BP Pulse Ox 01/13/25 15:20 98.2 F 67 16 113/76 98 01/13/25 14:14 98.4 F 18 01/13/25 14:09 70 113/67 01/13/25 13:54 71 107/67 01/13/25 13:39 66 110/63 01/13/25 13:24 58 L 115/70 01/13/25 13:09 69 117/70 01/13/25 12:54 63 111/64 01/13/25 12:49 67 90 01/13/25 12:47 71 99 01/13/25 12:42 69 95 01/13/25 12:39 68 108/55 L 01/13/25 12:37 97 01/13/25 12:37 71 01/13/25 12:37 69 93 01/13/25 12:32 73 97 01/13/25 12:27 77 95 01/13/25 12:24 90 125/62 01/13/25 12:22 66 98 01/13/25 12:17 68 99 01/13/25 12:12 69 98 01/13/25 12:09 78 119/58 L 01/13/25 12:07 92 H 100 01/13/25 12:02 79 99 01/13/25 11:57 79 98 01/13/25 11:54 81 125/58 L 01/13/25 11:52 86 98 01/13/25 11:47 94 H 99 01/13/25 11:42 87 99 01/13/25 11:37 87 100 01/13/25 11:34 86 91 01/13/25 11:32 100 H 100 01/13/25 11:27 76 100 01/13/25 11:24 78 118/70 01/13/25 11:22 76 100 01/13/25 11:17 84 100 01/13/25 11:12 70 100 01/13/25 11:09 69 18 114/63 01/13/25 11:07 67 100 01/13/25 11:02 70 100 01/13/25 10:57 69 100 01/13/25 10:54 67 101/60 01/13/25 10:52 75 100 01/13/25 10:47 75 100 01/13/25 10:44 78 92 01/13/25 10:42 60 100 01/13/25 10:38 59 L 106/55 L 01/13/25 10:37 99 01/13/25 10:37 66 01/13/25 10:37 75 111/61 01/13/25 10:34 91 01/13/25 10:34 63 01/13/25 10:34 60 106/58 L 01/13/25 10:32 98 01/13/25 10:32 66 01/13/25 10:32 71 116/65 01/13/25 10:30 59 L 102/58 L 01/13/25 10:28 61 105/61 01/13/25 10:27 61 100 01/13/25 10:26 60 100/57 L 01/13/25 10:24 64 104/57 L 01/13/25 10:22 100 01/13/25 10:22 63 01/13/25 10:22 59 L 109/57 L 01/13/25 10:20 78 108/57 L 01/13/25 10:18 72 121/57 L 01/13/25 10:17 77 98 01/13/25 10:12 92 H 99 01/13/25 10:07 81 99 01/13/25 10:02 82 99 01/13/25 09:57 98.2 F 85 24 98 01/13/25 09:52 76 100 01/13/25 09:47 83 100 01/13/25 09:46 102 H 90 01/13/25 09:42 76 100 01/13/25 09:41 98.2 F 20 O2 Del Method 01/13/25 15:20 Room Air 01/13/25 14:14 01/13/25 14:09 01/13/25 13:54 01/13/25 13:39 01/13/25 13:24 01/13/25 13:09 01/13/25 12:54 01/13/25 12:49 01/13/25 12:47 01/13/25 12:42 01/13/25 12:39 01/13/25 12:37 01/13/25 12:37 01/13/25 12:37 01/13/25 12:32 01/13/25 12:27 01/13/25 12:24 01/13/25 12:22 01/13/25 12:17 01/13/25 12:12 01/13/25 12:09 01/13/25 12:07 01/13/25 12:02 01/13/25 11:57 01/13/25 11:54 01/13/25 11:52 01/13/25 11:47 01/13/25 11:42 01/13/25 11:37 01/13/25 11:34 01/13/25 11:32 01/13/25 11:27 01/13/25 11:24 01/13/25 11:22 01/13/25 11:17 01/13/25 11:12 01/13/25 11:09 01/13/25 11:07 01/13/25 11:02 01/13/25 10:57 01/13/25 10:54 01/13/25 10:52 01/13/25 10:47 01/13/25 10:44 01/13/25 10:42 01/13/25 10:38 01/13/25 10:37 01/13/25 10:37 01/13/25 10:37 01/13/25 10:34 01/13/25 10:34 01/13/25 10:34 01/13/25 10:32 01/13/25 10:32 01/13/25 10:32 01/13/25 10:30 01/13/25 10:28 01/13/25 10:27 01/13/25 10:26 01/13/25 10:24 01/13/25 10:22 01/13/25 10:22 01/13/25 10:22 01/13/25 10:20 01/13/25 10:18 01/13/25 10:17 01/13/25 10:12 01/13/25 10:07 01/13/25 10:02 01/13/25 09:57 01/13/25 09:52 01/13/25 09:47 01/13/25 09:46 01/13/25 09:42 01/13/25 09:41 PG Care Time/CCT Total # of Minutes Spent Total Time Spent with Patient: Total time spent is greater than 50% in coordination of care (as documented) at patient's floor/unit and/or counseling patient: Coding Level of Care Code None Diagnoses hemorrhage O72.1
[2025-01-13] MEDS ORDERED: METHYLERGONOVINE MALEATE 0.2 MG/ML AMP IM STA (17:49)
[2025-01-13] MEDS: OXYTOCIN 20 UNITS in LACTATED RINGER'S 1,000 ML IV SCH (17:55)
[2025-01-13] MEDS: OXYTOCIN 20 UNITS/1002ML LR IV ONE (17:59)
[2025-01-13] MEDS: DIPHTHER/TETAN/PERTUS Vaccine (Tdap, Adol/Adult) 0.5mL IM ONE (18:15)
[2025-01-13] MEDS: BUTORPHANOL TARTRATE 1 MG/ML VIAL IV ONE (18:16)
[2025-01-13] MEDS: TRANEXAMIC ACID / 0.7% NACL 1000MG/100ML BAG IV ONE (18:40)
[2025-01-13] MEDS: IBUPROFEN 600 MG TAB PO PRN (20:53)
[2025-01-13] MEDS: DOCUSATE SODIUM 100 MG CAP PO SCH (20:54)
[2025-01-13] MEDS: ACETAMINOPHEN 325 MG TAB PO PRN (22:55)
--- NOTE | 2025-01-14 06:11 | Obstetrical Progress Note ---
Date of Service January 14, 2025 Assessment & Plan (1) care and examination: Plan: Patient is post status day 1 with complication of PPH. Patient is currently stable and admits that the bleeding is getting better. Will continue to monitor for worsening bleeding or clotting. (2) hemorrhage: Plan: Patient bleed post delivery. Hgb went from 10.4 to 8.3 on 01/13. CBC no diff was ordered for this morning. Will continue to monitor for worsening bleeding or clotting. Admission and Anticipated Discharge Date Admission Date: January 13, 2025 Supervising Physician Co-Signing Physician Notes Resident Physician Supervision Note: I interviewed and examined the patient. Discussed with Dr. Rai and agree with findings and plan as documented in the note. Any exceptions or clarifications are listed here: pt doing well this am, sitting in bed holding baby. says she feels slow but doing ok. no dizziness/lightheadedness. eating, voiding, ambulating without issues. bleeding is slowed down. . abd soft ff 2 down nt, appro tenderness. ext nt calves. ppd #1 s/p with pph. doing well this am. hgb pending this am. discussed with pt parameters for transfusion. likely unnecessary without ongoing bleeding but can see how she does today. can plan dc home later today if she desires. instructions reviewed. f/u 6 wk pp reviewed in case does go home later. breast, rhpos, ri. Addendum: hgb returned 12/04, discussed with pt and partner. can opt for 1u PRBCs if desires. discussed option for building up stores with oral iron. she will plan to move around more this am, take shower etc and see how she feels to decide. i will let matias ott know about this plan. Documented By: Court Knox MD, FACOG Subjective 24 yo (gest. carrier x1) post- day 1 s/p [] with complication of PPH Ambulation: ambulating normally Voiding: no voiding problems Passing Gas:: Yes Diet Tolerance:: regular diet Feeding Type:: breast feeding Current Pain Level:Feels cramping pain in her abdomen. Patient states the pain is worse today but the bleeding is better. Resting comfortably this AM in NAD. Denies fevers/chills, CORONA, CP/palp, SOB/cough/wheezing, N/V/D, LE pain, breast pain/dschrg, UTI Sx Review of Systems Review of Systems: as per subjective HPI Physical Exam Constitutional: WD/WN, vitals as above Respiratory: normal respiratory effort, lungs clear to auscultation Cardiovascular: RRR, no murmur, no edema Extremities: no calf tenderness and no edema Gastrointestinal (Abdomen): Percussion/Palpation: + abdomen tender (RLQ and LLQ) and abdomen soft Skin: no rashes, warm and dry Psychiatric: Eye Contact: good eye contact Speech: normal rate/rhythm/volume of speech Thought Process: linear/logical thought process Genitourinary: uterus was firm and 1cm above the umbilicus. Results & Data Vital Signs (Past 12 Hours) Vital Signs Temp Pulse Pulse Pulse Resp BP BP 01/14/25 03:05 37 C 67 16 110/73 01/13/25 22:45 36.8 C 74 16 121/77 01/13/25 22:05 88 01/13/25 22:05 119/60 01/13/25 21:53 75 01/13/25 21:53 118/64 01/13/25 21:38 65 01/13/25 21:38 117/65 01/13/25 21:23 73 01/13/25 21:23 116/67 01/13/25 21:08 71 01/13/25 21:08 119/72 01/13/25 20:53 75 01/13/25 20:53 116/65 01/13/25 20:45 01/13/25 20:45 99 H 01/13/25 20:42 01/13/25 20:42 74 01/13/25 20:38 80 01/13/25 20:38 112/69 01/13/25 20:37 01/13/25 20:37 83 01/13/25 20:32 01/13/25 20:32 83 01/13/25 20:27 01/13/25 20:27 81 01/13/25 20:23 87 01/13/25 20:23 120/69 01/13/25 20:22 01/13/25 20:22 79 01/13/25 20:17 01/13/25 20:17 76 01/13/25 20:12 01/13/25 20:12 85 01/13/25 20:08 80 01/13/25 20:08 129/69 01/13/25 20:07 01/13/25 20:07 83 01/13/25 20:02 01/13/25 20:02 78 01/13/25 19:57 01/13/25 19:57 78 01/13/25 19:55 01/13/25 19:55 81 01/13/25 19:53 75 01/13/25 19:53 127/62 01/13/25 19:52 01/13/25 19:52 77 01/13/25 19:47 01/13/25 19:47 80 01/13/25 19:42 01/13/25 19:42 73 01/13/25 19:38 75 01/13/25 19:38 128/67 01/13/25 19:37 01/13/25 19:37 85 01/13/25 19:30 01/13/25 19:30 71 01/13/25 19:25 01/13/25 19:25 67 01/13/25 19:23 71 01/13/25 19:23 121/76 01/13/25 19:20 01/13/25 19:20 66 01/13/25 19:15 01/13/25 19:15 65 01/13/25 19:10 01/13/25 19:10 64 01/13/25 19:08 60 01/13/25 19:08 36.8 C 18 116/80 01/13/25 19:05 01/13/25 19:05 69 01/13/25 19:00 01/13/25 19:00 65 01/13/25 18:55 01/13/25 18:55 64 01/13/25 18:53 74 01/13/25 18:53 115/77 01/13/25 18:50 01/13/25 18:50 65 01/13/25 18:45 01/13/25 18:45 66 01/13/25 18:40 01/13/25 18:40 66 01/13/25 18:38 69 01/13/25 18:38 118/72 01/13/25 18:35 18 01/13/25 18:35 01/13/25 18:35 63 01/13/25 18:30 01/13/25 18:30 63 01/13/25 18:30 113/56 L 01/13/25 18:20 01/13/25 18:20 68 01/13/25 18:15 01/13/25 18:15 67 01/13/25 18:10 01/13/25 18:10 80 01/13/25 18:08 88 01/13/25 18:08 118/79 Pulse Ox O2 Del Method 01/14/25 03:05 97 Room Air 01/13/25 22:45 97 Room Air 01/13/25 22:05 01/13/25 22:05 01/13/25 21:53 01/13/25 21:53 01/13/25 21:38 01/13/25 21:38 01/13/25 21:23 01/13/25 21:23 01/13/25 21:08 01/13/25 21:08 01/13/25 20:53 01/13/25 20:53 01/13/25 20:45 92 01/13/25 20:45 01/13/25 20:42 100 01/13/25 20:42 01/13/25 20:38 01/13/25 20:38 01/13/25 20:37 98 01/13/25 20:37 01/13/25 20:32 100 01/13/25 20:32 01/13/25 20:27 100 01/13/25 20:27 01/13/25 20:23 01/13/25 20:23 01/13/25 20:22 99 01/13/25 20:22 01/13/25 20:17 97 01/13/25 20:17 01/13/25 20:12 98 01/13/25 20:12 01/13/25 20:08 01/13/25 20:08 01/13/25 20:07 100 01/13/25 20:07 01/13/25 20:02 97 01/13/25 20:02 01/13/25 19:57 98 01/13/25 19:57 01/13/25 19:55 92 01/13/25 19:55 01/13/25 19:53 01/13/25 19:53 01/13/25 19:52 99 01/13/25 19:52 01/13/25 19:47 98 01/13/25 19:47 01/13/25 19:42 98 01/13/25 19:42 01/13/25 19:38 01/13/25 19:38 01/13/25 19:37 97 01/13/25 19:37 01/13/25 19:30 100 01/13/25 19:30 01/13/25 19:25 98 01/13/25 19:25 01/13/25 19:23 01/13/25 19:23 01/13/25 19:20 98 01/13/25 19:20 01/13/25 19:15 99 01/13/25 19:15 01/13/25 19:10 98 01/13/25 19:10 01/13/25 19:08 01/13/25 19:08 01/13/25 19:05 98 01/13/25 19:05 01/13/25 19:00 99 01/13/25 19:00 01/13/25 18:55 98 01/13/25 18:55 01/13/25 18:53 01/13/25 18:53 01/13/25 18:50 100 01/13/25 18:50 01/13/25 18:45 100 01/13/25 18:45 01/13/25 18:40 100 01/13/25 18:40 01/13/25 18:38 01/13/25 18:38 01/13/25 18:35 01/13/25 18:35 99 01/13/25 18:35 01/13/25 18:30 100 01/13/25 18:30 01/13/25 18:30 01/13/25 18:20 100 01/13/25 18:20 01/13/25 18:15 99 01/13/25 18:15 01/13/25 18:10 81 L 01/13/25 18:10 01/13/25 18:08 01/13/25 18:08 Laboratory Results 01/13/25 01/13/25 01/13/25 Range/Units 17:28 10:52 09:51 WBC 10.13 (4.8-10.8) K/ul RBC 4.74 (4.20-5.40) M/uL Hgb 8.3 L 10.4 L (12.0-16.0) g/dl Hct 27.9 L 34.1 L (37.0-47.0) % MCV 71.9 L (80.0-100.0) fL MCH 21.9 L (25.0-34.0) pg MCHC 30.5 L (32.0-36.0) g/dL RDW Std Deviation 40.9 (36.4-46.3) fL RDW Coeff of Justen 15.9 H (11.5-14.5) % Plt Count 230 (130-400) K/uL MPV 10.9 (9.4-12.4) fL POC Glucose 73 (70-99) mg/dl Treponema pallidum Ab Negative (Negative) Blood Type O Positive Antibody Screen NEGATIVE Crossmatch See Detail
[2025-01-14 06:29] LABS: Hematocrit (blood only) 24.2 % (37.0-47.0); Hemoglobin 7.1 g/dl (12.0-16.0); Mean Corpuscular Hemoglobin 21.3 pg (25.0-34.0); Mean Corpuscular Volume 72.7 fL (80.0-100.0); Platelet Count 136 K/uL (130-400); RDW Standard Deviation 41.1 fL (36.4-46.3); Red Blood Count 3.33 M/uL (4.20-5.40); White Blood Count 11.96 K/ul (4.8-10.8)
[2025-01-14] MEDS ORDERED: SODIUM CHLORIDE 0.9% 100 ML IV PRN (07:55)
[2025-01-14] MEDS: PRENATAL VITAMIN 1 TAB PO SCH (08:43)
[2025-01-14 23:54] VITALS: RESP 18
--- NOTE | 2025-01-15 06:18 | Obstetrical Progress Note ---
Date of Service January 15, 2025 Assessment & Plan (1) care and examination: Plan: Patient is post status day 2 with complication of PPH. Patient is currently stable and admits that the bleeding is getting better. Will will discharge today. (2) hemorrhage: Plan: Patient bleed post delivery. Hgb went from 10.4 to 8.3 on 01/13. Hgb on 01/14 was 7.1. Patient denied any dizziness and her bleeding has gotten better. Patient only noticed one clot that was smaller than the size of a quarter. Will discharge today. Admission and Anticipated Discharge Date Admission Date: January 13, 2025 Supervising Physician Co-Signing Physician Notes Patient seen with resident and agree with the above findings and plan. Denying any anemia symptoms. 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 Patient denied any dizziness. Voiding: no voiding problems Passing Gas:: Yes Diet Tolerance:: regular diet Feeding Type:: breast feeding Current Pain Level:Feels cramping pain in her abdomen. She states the percocet is the only thing that seems to help with the cramping pain. Pain is a 1-2/10 currently. Patient states the bleeding is especially better. Patient noticed one small clot smaller than the size of a quarter. Resting comfortably this AM in NAD. Denies fevers/chills, CORONA, CP/palp, SOB/cough/wheezing, N/V, LE pain, breast pain/dschrg, UTI Sx Review of Systems Review of Systems: as per subjective HPI Physical Exam Constitutional: WD/WN, vitals as above Respiratory: normal respiratory effort, lungs clear to auscultation Cardiovascular: RRR, no murmur, no edema Extremities: + edema (trace); no calf tenderness Gastrointestinal (Abdomen): Percussion/Palpation: + abdomen tender (RLQ and LLQ) and abdomen soft Skin: no rashes, warm and dry Psychiatric: Eye Contact: good eye contact Speech: normal rate/rhythm/volume of speech Thought Process: linear/logical thought process Genitourinary: uterus is firm at umbilicus Results & Data Vital Signs (Past 12 Hours) Vital Signs Temp Pulse Pulse Resp BP Pulse Ox O2 Del Method 01/14/25 23:19 36.7 C 69 18 106/73 98 Room Air 01/14/25 19:25 36.5 C 76 20 125/82 99 Room Air Laboratory Results Lab Results 01/13/25 01/13/25 01/13/25 Range/Units 09:51 10:52 17:28 WBC 10.13 (4.8-10.8) K/ul RBC 4.74 (4.20-5.40) M/uL Hgb 10.4 L 8.3 L (12.0-16.0) g/dl Hct 34.1 L 27.9 L (37.0-47.0) % MCV 71.9 L (80.0-100.0) fL MCH 21.9 L (25.0-34.0) pg MCHC 30.5 L (32.0-36.0) g/dL RDW Std Deviation 40.9 (36.4-46.3) fL RDW Coeff of Justen 15.9 H (11.5-14.5) % Plt Count 230 (130-400) K/uL MPV 10.9 (9.4-12.4) fL POC Glucose 73 (70-99) mg/dl Treponema pallidum Ab Negative (Negative) Blood Type O Positive Antibody Screen NEGATIVE Crossmatch See Detail 01/14/25 Range/Units 06:10 WBC 11.96 H (4.8-10.8) K/ul RBC 3.33 L (4.20-5.40) M/uL Hgb 7.1 L (12.0-16.0) g/dl Hct 24.2 L (37.0-47.0) % MCV 72.7 L (80.0-100.0) fL MCH 21.3 L (25.0-34.0) pg MCHC 29.3 L (32.0-36.0) g/dL RDW Std Deviation 41.1 (36.4-46.3) fL RDW Coeff of Justen 15.9 H (11.5-14.5) % Plt Count 136 (130-400) K/uL MPV 10.3 (9.4-12.4) fL POC Glucose (70-99) mg/dl Treponema pallidum Ab (Negative) Blood Type Antibody Screen Crossmatch
[2025-01-15 07:36] VITALS: PULSE 67
[2025-01-15] MEDS: FERROUS SULFATE 325 MG TAB PO SCH (08:50)
[2025-01-15 09:43] VITALS: BP 119/82; TEMP 98.1; O2SAT 99
== END 2025-01-15 11:30 | disposition home or self-care (01) | DRG 806 ==
LOC: OPB 09:33 → 4S1 09:37 → 4E2 14:33 → 4S1 17:57 → 4E2 22:50